=== PATIENT | male | born 1960 | race Caucasian/White ===

== ENCOUNTER → 2021-05-02 | Outpatient (CLI) | payer OTHER ==
[~2021-05-02] MED LIST: AMITRIPTYLINE100 MG PO; APIDRA100 UNIT/1 SQ; ASPIRIN 325MG325 MG PO; BASAGLAR K100 UNIT/1 SQ; CREON DR 24,001 EACH PO; CRESTOR20 MG PO; GLUCOPHAGE1000 MG PO; HYDRALAZINE HCL25 MG PO; ISOSORBIDE MONO20 MG PO; LAMICTAL100 MG PO; PERCOCET 10-321 EACH PO; ROBAXIN-750750 MG PO; ZOLOFT100 MG PO; [UNRECOGNIZED DRUG - OTHER]
== END ==
LOC: LAB 14:03
DX: K86.0 Alcohol-induced chronic pancreatitis (principal)
CPT/HCPCS: 36415; 82565; 84520

== ENCOUNTER → 2021-05-05 | Outpatient (CLI) | payer OTHER | LOC: CT 08:30 | DX: K86.0 Alcohol-induced chronic pancreatitis (principal) | CPT/HCPCS: 74170; Q9967 ==

== ENCOUNTER → 2021-06-20 | Outpatient (CLI) | payer OTHER | LOC: KOH-I 14:20 | DX: R91.8 Other nonspecific abnormal finding of lung field (principal) | CPT/HCPCS: 71250 ==